=== PATIENT | male | born 1995 | race Caucasian/White ===

== ENCOUNTER 2017-02-05 23:08 | Emergency (ER) | payer OTHER | END 2017-02-06 06:30 | disposition home or self-care (01) | LOC: ER1 23:08 | DX: S13.4XXA Sprain of ligaments of cervical spine, initial encounter (principal); R51 Headache; V59.49XA Driver of pick-up truck or van injured in collision with other motor vehicles in traffic accident, initial encounter; Y93.89 Activity, other specified; Y92.410 Unspecified street and highway as the place of occurrence of the external cause | CPT/HCPCS: 70450; 71020; 72072; 72125; 99284 ==